=== PATIENT | female | born 1990 | race Hispanic/Latino ===

== ENCOUNTER 2017-11-22 06:50 | Emergency (ER) | payer SELFPAY ==
[2017-11-22] MEDS ORDERED: KETOROLAC 30 MG/ML INJ ONE (07:41)
--- NOTE | 2017-11-22 08:42 | RAD REPORT ---
EXAM DESCRIPTION: Javy Single View11/22/2017 7:54 am CLINICAL HISTORY: Chest pain COMPARISON: January 2017 FINDINGS: The lungs appear clear of acute infiltrate. The heart is normal size IMPRESSION: No acute abnormalities displayed
--- NOTE | 2017-11-22 08:55 | ER ---
Nurse's Notes [facility] Name: Perla Haro Age: 27 yrs Sex: Female : 1990 Arrival Date: 11/22/2017 Time: 06:53 Bed 18 Private MD: Diagnosis: Other chest pain;Chest pain, unspecified;Chest pain on breathing;Pleurisy Presentation: 11/22 06:59 Presenting complaint: Patient states: "my chest and my back hurts when I take a deep aa5 breath and it's been going on for a week". Pt c/o pain to right-mid back when taking a deep breath and with movement. Pt denies cough. Transition of care: patient was not received from another setting of care. Onset of symptoms was October 2017. Risk Assessment: Do you want to hurt yourself or someone else? Patient reports no desire to harm self or others. Initial Sepsis Screen: Does the patient meet any 2 criteria? No. Patient's initial sepsis screen is negative. Does the patient have a suspected source of infection? No. Patient's initial sepsis screen is negative. Care prior to arrival: None. 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 - Social history:: Smoking status: Patient/guardian denies using tobacco. - Ebola Screening: : No symptoms or risks identified at this time. Screenin:57 Abuse screen: Denies threats or abuse. Nutritional screening: No deficits noted. ae1 Tuberculosis screening: No symptoms or risk factors identified. Fall Risk None identified. Assessment: 07:54 General: Appears in no apparent distress. comfortable, Behavior is calm, cooperative. ae1 Pain: Complains of pain in right mid back and right low back Pain currently is 6 out of 10 on a pain scale. Pain: Aggravated by Inspiration. Neuro: Level of Consciousness is awake, alert, obeys commands, Oriented to person, place, time, situation. Cardiovascular: Heart tones S1 S2 present Patient's skin is warm and dry. Respiratory: Airway is patent Respiratory effort is even, unlabored, Respiratory pattern is regular, symmetrical, Breath sounds are clear bilaterally. GI: No signs and/or symptoms were reported involving the gastrointestinal system. : No signs and/or symptoms were reported regarding the genitourinary system. EENT: No signs and/or symptoms were reported regarding the EENT system. Derm: Skin is normal. Musculoskeletal: Range of motion: intact in all extremities, No visible bruising, swelling or deformity. 08:33 Reassessment: Patient appears in no apparent distress at this time. Patient states ae1 feeling better. Patient states symptoms have improved. Vital Signs: 07:01 BP 119 / 70; Pulse 71; Resp 18 S; Temp 97.6(TE); Pulse Ox 100% on R/A; Weight 63.5 kg aa5 (R); Height 5 ft. 4 in. (162.56 cm) (R); Pain 7/10; 08:32 BP 113 / 72; Pulse 73; Resp 18; Pulse Ox 100% on R/A; ae1 07:01 Body Mass Index 24.03 (63.50 kg, 162.56 cm) aa5 ED Course: 06:53 Patient arrived in ED. am2 07:00 Triage completed. aa5 07:01 Arm band placed on. aa5 07:02 Dami Joya, MEHREEN is Primary Nurse. ae1 07:05 Malcom Zafar MD is Attending Physician. kdr 07:34 Urine collected: clean catch specimen, cloudy, maryan colored. jb1 07:53 X-ray completed. Portable x-ray completed in exam room. Patient tolerated procedure jb2 well. 07:54 CXR XRAY In Process Unspecified. EDMS 07:57 Bed in low position. Call light in reach. Side rails up X 1. Pulse ox on. NIBP on. ae1 09:11 No provider procedures requiring assistance completed. Patient did not have IV access ae1 during this emergency room visit. Administered Medications: 07:40 Drug: TORadol 60 mg Route: IM; Site: right gluteus; ae1 08:33 Follow up: Response: Pain is decreased ae1 Outcome: 08:54 Discharge ordered by . kdr 09:11 Discharged to ae1 09:11 Condition: stable 09:13 Discharge instructions given to patient, Instructed on discharge instructions, follow ae1 up and referral plans. medication usage, Demonstrated understanding of instructions, Prescriptions given X 3. 09:14 Patient left the ED. ae1 Signatures: Dispatcher [employer] EDJean Pierre Carson jb1 Malcom Zafar MD MD kdr Buechter, Jesse jb2 Marian Isaac RN RN aa5 Dami Joya RN RN ae1 Coty Christie am2
--- NOTE | 2017-11-22 08:55 | EDPHYS ---
Physician Documentation [facility] Name: Perla Haro Age: 27 yrs Sex: Female : 1990 Arrival Date: 11/22/2017 Time: 06:53 Bed 18 Private MD: ED Physician Malcom Zafar HPI: 11/22 07:41 This 27 yrs old Female presents to ER via Ambulatory with complaints of Back kdr Pain, Chest Pain - when taking deep breath. 07:41 The patient presents with pain that is acute, with no known mechanism of injury, and kdr tenderness. The symptoms are located in the right subscapular area. Onset: The symptoms/episode began/occurred gradually, 1 week(s) ago. The pain does not radiate. Associated signs and symptoms: Pertinent positives: SOB secondary to pain, Pertinent negatives: abdominal pain, chest pain, constipation, dysuria, fever, hematuria, incontinence, nausea, numbness, tingling, urinary retention, vomiting, weakness. The problem was sustained from unknown cause. Modifying factors: The patient symptoms are alleviated by remaining still, the patient symptoms are aggravated by any movement, bending, coughing, walking. Severity of symptoms: At their worst the symptoms were mild, moderate, just prior to arrival, in the emergency department the symptoms have improved, mildly. The patient has experienced a previous episode, approximately 2 years ago, Bronchitis. The patient has not recently seen a physician. 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 - Social history:: Smoking status: Patient/guardian denies using tobacco. - Ebola Screening: : No symptoms or risks identified at this time. ROS: 07:41 Constitutional: Negative for fever, chills, and weight loss, Eyes: Negative for injury, kdr pain, redness, and discharge, ENT: Negative for injury, pain, and discharge, Neck: Negative for injury, pain, and swelling, Respiratory: Negative for shortness of breath, cough, wheezing, and pleuritic chest pain, Abdomen/GI: Negative for abdominal pain, nausea, vomiting, diarrhea, and constipation, Back: Negative for injury and pain, : Negative for injury, bleeding, discharge, and swelling, MS/Extremity: Negative for injury and deformity, Skin: Negative for injury, rash, and discoloration, Neuro: Negative for headache, weakness, numbness, tingling, and seizure activity. Psych: Negative for depression, anxiety, suicide ideation, homicidal ideation, and hallucinations, Allergy/Immunology: Negative for hives, rash, and allergies, Endocrine: Negative for neck swelling, polydipsia, polyuria, polyphagia, and marked weight changes, Hematologic/Lymphatic: Negative for swollen nodes, abnormal bleeding, and unusual bruising. 07:41 Cardiovascular: Positive for chest pain, with cough, with movement, of the right subscapular area, Negative for edema, orthopnea, palpitations, paroxysmal nocturnal dyspnea. Exam: 07:41 Constitutional: This is a well developed, well nourished patient who is awake, alert, kdr and in no acute distress. Head/Face: Normocephalic, atraumatic. Eyes: Pupils equal round and reactive to light, extra-ocular motions intact. Lids and lashes normal. Conjunctiva and sclera are non-icteric and not injected. Cornea within normal limits. Periorbital areas with no swelling, redness, or edema. Neck: Trachea midline, no thyromegaly or masses palpated, and no cervical lymphadenopathy. Supple, full range of motion without nuchal rigidity, or vertebral point tenderness. No Meningismus. Chest/axilla: Normal chest wall appearance and motion. Nontender with no deformity. No lesions are appreciated. Cardiovascular: Regular rate and rhythm with a normal S1 and S2. No gallops, murmurs, or rubs. Normal PMI, no JVD. No pulse deficits. Respiratory: Lungs have equal breath sounds bilaterally, clear to auscultation and percussion. No rales, rhonchi or wheezes noted. No increased work of breathing, no retractions or nasal flaring. Abdomen/GI: Soft, non-tender, with normal bowel sounds. No distension or tympany. No guarding or rebound. No evidence of tenderness throughout. Back: No spinal tenderness. No costovertebral tenderness. Full range of motion. Skin: Warm, dry with normal turgor. Normal color with no rashes, no lesions, and no evidence of cellulitis. MS/ Extremity: Pulses equal, no cyanosis. Neurovascular intact. Full, normal range of motion. Neuro: Awake and alert, GCS 15, oriented to person, place, time, and situation. Cranial nerves II-XII grossly intact. Motor strength 5/5 in all extremities. Sensory grossly intact. Cerebellar exam normal. Normal gait. Psych: Awake, alert, with orientation to person, place and time. Behavior, mood, and affect are within normal limits. Vital Signs: 07:01 BP 119 / 70; Pulse 71; Resp 18 S; Temp 97.6(TE); Pulse Ox 100% on R/A; Weight 63.5 kg aa5 (R); Height 5 ft. 4 in. (162.56 cm) (R); Pain 7/10; 08:32 BP 113 / 72; Pulse 73; Resp 18; Pulse Ox 100% on R/A; ae1 07:01 Body Mass Index 24.03 (63.50 kg, 162.56 cm) aa5 MDM: 08:54 Patient medically screened. kdr 11:17 Data reviewed: vital signs, nurses notes, lab test result(s), radiologic studies. kdr Counseling: I had a detailed discussion with the patient and/or guardian regarding: the historical points, exam findings, and any diagnostic results supporting the discharge/admit diagnosis, lab results, radiology results, the need for outpatient follow up. 11/22 07:54 Order name: Urine Dipstick--Ancillary (enter results) 11/22 07:54 Order name: Urine --Ancillary (enter results) bd 11/22 07:13 Order name: CXR XRAY [facility] 11/22 07:13 Order name: Urine Dipstick-Ancillary (obtain specimen); Complete Time: 07:34 kdr 11/22 07:13 Order name: Urine Test (obtain specimen); Complete Time: 07:34 kdr Administered Medications: 07:40 Drug: TORadol 60 mg Route: IM; Site: right gluteus; ae1 08:33 Follow up: Response: Pain is decreased ae1 Disposition: 11/22/17 08:54 Discharged to Home. Impression: Other chest pain, Chest pain, unspecified, Chest pain on breathing, Pleurisy. - Condition is Stable. - Discharge Instructions: Chest Wall Pain, [id number], Pleurisy, [id number]. - Prescriptions for Ibuprofen 800 mg Oral Tablet - take 1 tablet by ORAL route every 12 hours As needed take with food; 20 tablet. Tramadol 50 mg Oral Tablet - take 1 tablet by ORAL route every 8 hours as needed; 12 tablet. Medrol (Alexis) 4 mg Oral Tablets, Dose Pack - take 1 tablet by ORAL route as directed - follow package instructions; 1 packet. - Medication Reconciliation Form, Thank You Letter, Work release form form. - Follow up: Private Physician; When: 2 - 3 days; Reason: If symptoms return, Further diagnostic work-up, Recheck today's complaints, Continuance of care, Re-evaluation by your physician. - Problem is new. - Symptoms have improved. Signatures: Dispatcher [employer] EDMS Malcom Zafar MD MD [facility] Marian Isaac RN RN aa5 Dami Joya RN RN ae1 Corrections: (The following items were deleted from the chart) 09:14 08:54 11/22/2017 08:54 Discharged to Home. Impression: Other chest pain; Chest pain, ae1 unspecified; Chest pain on breathing; Pleurisy. Condition is Stable. Forms are Medication Reconciliation Form, Thank You Letter, Antibiotic Education, Prescription Opioid Use. Follow up: Private Physician; When: 2 - 3 days; Reason: If symptoms return, Further diagnostic work-up, Recheck today's complaints, Continuance of care, Re-evaluation by your physician. Problem is new. Symptoms have improved. kdr
[2017-11-22 09:13] LABS: Urine Blood NEGATIVE (NEG); Urine Glucose NEGATIVE (NEG); Urine Protein NEGATIVE (NEG); Urine Specific Gravity 1.015 (1.005-1.030)
[2017-11-22 09:17] VITALS: TEMP 97.6; O2SAT 100
[2017-11-22 09:18] VITALS: BP 113/72
== END 2017-11-22 09:14 | disposition home or self-care (01) ==
LOC: ER 06:50
DX: R07.1 Chest pain on breathing (principal); R09.1 Pleurisy
CPT/HCPCS: 71045; 81003; 81025; 96372; 99284

== ENCOUNTER 2017-12-19 11:58 | Emergency (ER) | payer SELFPAY ==
--- NOTE | 2017-12-19 14:00 | ER ---
Nurse's Notes [facility] Name: Perla Haro Age: 27 yrs Sex: Female : 1990 Arrival Date: 12/19/2017 Time: 12:01 Bed 11 Private MD: Diagnosis: Muscle spasm of back Presentation: 12/19 12:08 Presenting complaint: Patient states: Back pain for 1 month, painful cough for 1 week. aj Denies fever. Transition of care: patient was not received from another setting of care. Onset of symptoms was December 12, 2017. Risk Assessment: Do you want to hurt yourself or someone else? Patient reports no desire to harm self or others. Initial Sepsis Screen: Does the patient meet any 2 criteria? No. Patient's initial sepsis screen is negative. Does the patient have a suspected source of infection? No. Patient's initial sepsis screen is negative. Care prior to arrival: None. 12:08 Method Of Arrival: Ambulatory aj 12:08 Acuity: AMOL 4 aj Triage Assessment: 12:09 General: Appears in no apparent distress. comfortable, Behavior is calm, cooperative, aj appropriate for age. Pain: Complains of pain in right subscapular area, right mid back, right lateral posterior chest and right lateral anterior chest. Neuro: Level of Consciousness is awake, alert, obeys commands, Oriented to person, place, time, situation, Appropriate for age. Respiratory: Reports cough that is non-productive, Airway is patent Respiratory effort is even, unlabored, Respiratory pattern is regular, symmetrical. Derm: Skin is intact, is healthy with good turgor, Skin is pink, warm \T\ dry. normal. Musculoskeletal: Range of motion: intact in all extremities. 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 - Social history:: Smoking status: Patient/guardian denies using tobacco. - Ebola Screening: : Patient negative for fever greater than or equal to 101.5 degrees Fahrenheit, and additional compatible Ebola Virus Disease symptoms Patient denies exposure to infectious person Patient denies travel to an Ebola-affected area in the 21 days before illness onset No symptoms or risks identified at this time. Screenin:26 Abuse screen: Denies threats or abuse. Denies injuries from another. Nutritional iw screening: No deficits noted. Tuberculosis screening: No symptoms or risk factors identified. 14:21 Fall Risk None identified. iw Assessment: 13:25 General: Appears in no apparent distress. Behavior is calm, cooperative. Pain: iw Complains of pain in right subscapular area, right mid back and right low back. Neuro: Level of Consciousness is awake, alert, obeys commands, Oriented to person, place, time, situation, Moves all extremities. Full function. Respiratory: Respiratory effort is even, unlabored. Respiratory: Reports shortness of breath cough that is non-productive. Derm: Skin is pink, warm \T\ dry. normal. Musculoskeletal: Range of motion: intact in all extremities. Vital Signs: 12:09 BP 95 / 76; Pulse 90; Resp 20; Temp 98.1; Pulse Ox 99% on R/A; Weight 63.5 kg; Height 5 aj ft. 4 in. (162.56 cm); 12:09 Body Mass Index 24.03 (63.50 kg, 162.56 cm) aj ED Course: 12:01 Patient arrived in ED. mr 12:09 Triage completed. aj 12:09 Arm band placed on left wrist. Patient placed in waiting room. aj 13:05 Jean-Paul Adkins PA is PHCP. jr8 13:05 Danial Williamson MD is Attending Physician. jr8 13:25 Darling Brooks, RN is Primary Nurse. iw 13:42 X-ray completed. Patient tolerated procedure well. Patient moved back from radiology. jb2 13:45 Chest Pa And Lat (2 Views) XRAY In Process Unspecified. EDMS 14:20 No provider procedures requiring assistance completed. Patient did not have IV access iw during this emergency room visit. 14:21 Patient has correct armband on for positive identification. iw Administered Medications: No medications were administered Outcome: 13:59 Discharge ordered by . jr8 14:20 Discharged to home ambulatory. iw 14:20 Condition: good 14:20 Discharge instructions given to patient, Instructed on discharge instructions, follow up and referral plans. medication usage, Demonstrated understanding of instructions, follow-up care, medications, Prescriptions given X 1. 14:21 Patient left the ED. iw Signatures: Dispatcher [employer] Coty Gaytan RN RN aj Rivera, Maria mr Buechter, Jesse jb2 Darling Brooks RN RN iw Roszak, Josh, PA PA jr8
--- NOTE | 2017-12-19 14:00 | EDPHYS ---
Physician Documentation [facility] Name: Perla Haro Age: 27 yrs Sex: Female : 1990 Arrival Date: 12/19/2017 Time: 12:01 Bed 11 Private MD: ED Physician Danial Williamson HPI: 12/19 16:24 This 27 yrs old Female presents to ER via Ambulatory with complaints of Back jr8 Pain, Chest Pain. 16:24 Onset: The symptoms/episode began/occurred gradually, 1 month(s) ago. The pain does not jr8 radiate. Associated signs and symptoms: The patient has no apparent associated signs or symptoms. The problem was sustained from unknown cause. Severity of symptoms: At their worst the symptoms were mild, in the emergency department the symptoms are unchanged. The patient has not experienced similar symptoms in the past. The patient has not recently seen a physician. Patient stated that she has had back pain for about 1 month. No has had cough for a week. Was given antibiotics and feels slightly better but is still coughing and making back pain worse again . 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 - Social history:: Smoking status: Patient/guardian denies using tobacco. - Ebola Screening: : Patient negative for fever greater than or equal to 101.5 degrees Fahrenheit, and additional compatible Ebola Virus Disease symptoms Patient denies exposure to infectious person Patient denies travel to an Ebola-affected area in the 21 days before illness onset No symptoms or risks identified at this time. ROS: 20:18 Eyes: Negative for injury, pain, redness, and discharge, ENT: Negative for injury, jr8 pain, and discharge, Neck: Negative for injury, pain, and swelling, Cardiovascular: Negative for chest pain, palpitations, and edema, Abdomen/GI: Negative for abdominal pain, nausea, vomiting, diarrhea, and constipation, MS/Extremity: Negative for injury and deformity, Skin: Negative for injury, rash, and discoloration, Neuro: Negative for headache, weakness, numbness, tingling, and seizure. 20:18 Respiratory: Positive for cough, Negative for shortness of breath, sputum production, wheezing. 20:18 Back: Positive for pain at rest, pain with movement, of the right scapular area and right subscapular area. Exam: 20:18 Head/Face: Normocephalic, atraumatic. Eyes: Pupils equal round and reactive to light, jr8 extra-ocular motions intact. Lids and lashes normal. Conjunctiva and sclera are non-icteric and not injected. Cornea within normal limits. Periorbital areas with no swelling, redness, or edema. ENT: Nares patent. No nasal discharge, no septal abnormalities noted. Tympanic membranes are normal and external auditory canals are clear. Oropharynx with no redness, swelling, or masses, exudates, or evidence of obstruction, uvula midline. Mucous membranes moist. Neck: Trachea midline, no thyromegaly or masses palpated, and no cervical lymphadenopathy. Supple, full range of motion without nuchal rigidity, or vertebral point tenderness. No Meningismus. Cardiovascular: Regular rate and rhythm with a normal S1 and S2. No gallops, murmurs, or rubs. Normal PMI, no JVD. No pulse deficits. Respiratory: Lungs have equal breath sounds bilaterally, clear to auscultation and percussion. No rales, rhonchi or wheezes noted. No increased work of breathing, no retractions or nasal flaring. Abdomen/GI: Soft, non-tender, with normal bowel sounds. No distension or tympany. No guarding or rebound. No evidence of tenderness throughout. Skin: Warm, dry with normal turgor. Normal color with no rashes, no lesions, and no evidence of cellulitis. MS/ Extremity: Pulses equal, no cyanosis. Neurovascular intact. Full, normal range of motion. Neuro: Awake and alert, GCS 15, oriented to person, place, time, and situation. Cranial nerves II-XII grossly intact. Motor strength 5/5 in all extremities. Sensory grossly intact. Cerebellar exam normal. Normal gait. 20:18 Back: pain, that is mild, of the right scapular area and right subscapular area, ROM is painful, normal spinal alignment noted, CVA tenderness, is absent, muscle spasm, is appreciated in the right scapular area and right subscapular area. Vital Signs: 12:09 BP 95 / 76; Pulse 90; Resp 20; Temp 98.1; Pulse Ox 99% on R/A; Weight 63.5 kg; Height 5 aj ft. 4 in. (162.56 cm); 12:09 Body Mass Index 24.03 (63.50 kg, 162.56 cm) aj MDM: 13:05 Patient medically screened. jr8 13:58 Data reviewed: vital signs, nurses notes, radiologic studies, plain films, and as a jr8 result, I will discharge patient. Data interpreted: Pulse oximetry: on room air is 99 %. Interpretation: normal. Counseling: I had a detailed discussion with the patient and/or guardian regarding: the historical points, exam findings, and any diagnostic results supporting the discharge/admit diagnosis, the need for outpatient follow up, a family practitioner, to return to the emergency department if symptoms worsen or persist or if there are any questions or concerns that arise at home. 12/19 12:11 Order name: Chest Pa And Lat (2 Views) XRAY; Complete Time: 14:09 Administered Medications: No medications were administered Disposition: 12/20 06:38 Co-signature as Attending Physician, Danial Williamson MD I agree with the assessment and jacquelin plan of care. Disposition: 12/19/17 13:59 Discharged to Home. Impression: Muscle spasm of back. - Condition is Stable. - Discharge Instructions: Back Exercises, [id number], Heat Therapy. - Prescriptions for Cyclobenzaprine 10 mg Oral Tablet - take 1 tablet by ORAL route every 8 hours As needed; 30 tablet. - Work release form, Medication Reconciliation Form, Thank You Letter, Antibiotic Education, Prescription Opioid Use form. - Follow up: Private Physician; When: 1 week; Reason: Recheck today's complaints, Continuance of care, Re-evaluation by your physician. - Problem is new. - Symptoms are unchanged. Signatures: Dispatcher [employer] EDCoty Ramirez RN RN aj Anderson, Corey, MD MD cha Williams, Irene, RN RN iw Roszak, Josh, PA PA jr8 Corrections: (The following items were deleted from the chart) 12/19 14:21 13:59 12/19/2017 13:59 Discharged to Home. Impression: Muscle spasm of back. Condition iw is Stable. Forms are Medication Reconciliation Form, Thank You Letter, Antibiotic Education, Prescription Opioid Use. Follow up: Private Physician; When: 1 week; Reason: Recheck today's complaints, Continuance of care, Re-evaluation by your physician. Problem is new. Symptoms are unchanged. jr8 20:19 16:24 Patient stated that she has had back pain for about 1 month. . jr8 jr8
--- NOTE | 2017-12-19 14:07 | RAD REPORT ---
EXAM DESCRIPTION: RAD - Chest Pa And Lat (2 Views) - 12/19/2017 1:48 pm CLINICAL HISTORY: Painful cough, back pain COMPARISON: October 2017 TECHNIQUE: PA and lateral views of the chest were obtained. FINDINGS: The lungs are clear of acute infiltrate, mass or failure finding. Lung markings are mildly prominent but not clearly different. Heart size is normal and central vasculature is within normal limits. No pleural effusion or pneumothorax seen. No acute bony finding noted. Very minimal scolio tic curvature in the upper and mid thoracic spine. No aortic abnormality. IMPRESSION: No acute cardiopulmonary process. Chest is not significantly different from comparison.
[2017-12-19 14:27] VITALS: BP 95/76; TEMP 98.1; O2SAT 99
== END 2017-12-19 14:21 | disposition home or self-care (01) ==
LOC: ER 11:58
DX: M62.830 Muscle spasm of back (principal)
CPT/HCPCS: 71046; 99283

== ENCOUNTER 2018-06-10 12:38 | Emergency (ER) | payer SELFPAY ==
--- OUTSIDE RECORDS SUMMARY | 2018-06-10 12:41 | XMS REPORT ---
:1990 Author Organization [facility] Address [address] [place] [address] Care Team Providers Name Role Phone Unavailable Unavailable Unavailable Problems This patient has no known problems. Allergies, Adverse Reactions, Alerts This patient has no known allergies or adverse reactions. Medications This patient has no known medications.
[2018-06-10 13:24] LABS: Urine Bacteria 20-50 /HPF (<20); Urine Culture Reflex Order NOT NEEDED
[2018-06-10 13:28] LABS: Urine Blood TRACE (NEG); Urine Glucose TRACE (NEG); Urine Protein 1+ (NEG)
--- NOTE | 2018-06-10 13:57 | ER ---
Nurse's Notes [facility] Name: Perla Haro Age: 27 yrs Sex: Female : 1990 Arrival Date: 06/10/2018 Time: 12:42 Bed 30 Private MD: Diagnosis: Acute tubulo-interstitial nephritis Presentation: 06/10 12:48 Presenting complaint: Patient states: Burning with urination, Suprapubic pain, and L ss flank aching that began 1 week ago. Transition of care: patient was not received from another setting of care. Onset of symptoms was June 03, 2018. Risk Assessment: Do you want to hurt yourself or someone else? Patient reports no desire to harm self or others. Initial Sepsis Screen: Does the patient meet any 2 criteria? No. Patient's initial sepsis screen is negative. Does the patient have a suspected source of infection? Yes: Dysuria/Frequency/Urgency/UTI. Care prior to arrival: None. 12:48 Method Of Arrival: Ambulatory ss 12:48 Acuity: AMOL 3 ss Historical: - Allergies: 12:50 No Known Allergies; ss - Home Meds: 12:50 None [Active]; ss - PMHx: 12:50 None; ss - PSHx: 12:50 Tubal ligation; ss - Immunization history:: Adult Immunizations up to date. - Social history:: Smoking status: Patient/guardian denies using tobacco. - Ebola Screening: : Patient denies exposure to infectious person Patient denies travel to an Ebola-affected area in the 21 days before illness onset. Screenin:27 Abuse screen: Denies threats or abuse. Nutritional screening: No deficits noted. la1 Tuberculosis screening: No symptoms or risk factors identified. Fall Risk None identified. Assessment: 13:26 General: Appears in no apparent distress. Behavior is calm, cooperative. Pain: la1 Complains of pain in back Pain currently is 4 out of 10 on a pain scale. Neuro: Level of Consciousness is awake, alert, obeys commands, Oriented to person, place, time, situation. Cardiovascular: Capillary refill < 3 seconds Patient's skin is warm and dry. Respiratory: Airway is patent Trachea midline Respiratory effort is even, unlabored. GI: No signs and/or symptoms were reported involving the gastrointestinal system. : Reports burning with urination. 14:21 Reassessment: Patient appears in no apparent distress at this time. No changes from la1 previously documented assessment. Patient and/or family updated on plan of care and expected duration. Pain level reassessed. 14:25 Reassessment: Pt has been discharged, jacket found in room. Attempted to call number on file, but was not a working number. Vital Signs: 12:48 BP 119 / 71; Pulse 80; Resp 15; Temp 98.3(TE); Pulse Ox 100% on R/A; Weight 61.23 kg; ss Height 5 ft. 4 in. (162.56 cm); Pain 7/10; 12:48 Body Mass Index 23.17 (61.23 kg, 162.56 cm) ED Course: 12:42 Patient arrived in ED. mr 12:49 Triage completed. ss 12:50 Arm band placed on right wrist. 12:52 Melvin Henry RN is Primary Nurse. la1 12:53 Gumaro Anglin MD is Attending Physician. 13:27 Bed in low position. Call light in reach. la1 14:20 No provider procedures requiring assistance completed. Patient did not have IV access la1 during this emergency room visit. Administered Medications: 14:20 Drug: KeFLEX 1000 mg Route: PO; la1 14:20 Follow up: Response: Medication administered at discharge. la1 Outcome: 13:57 Discharge ordered by . gs 14:20 Discharged to home ambulatory. la1 14:20 Condition: stable 14:20 Discharge instructions given to patient, Instructed on discharge instructions, follow up and referral plans. medication usage, Demonstrated understanding of instructions, follow-up care, medications, Prescriptions given X 1. 14:21 Patient left the ED. la1 Addendum: 06/13/2018 07:13 Addendum: Culture Results: Positive urine culture. No further action required. Bacteria h b sensitive to prescribed antibiotic. Signatures: Chema January piedra Nanette Livingston RN RN Melvin Henry RN RN la Syl Mariano RN RN Gumaro Anglin MD MD
--- NOTE | 2018-06-10 13:57 | EDPHYS ---
Physician Documentation [facility] Name: Perla Haro Age: 27 yrs Sex: Female : 1990 Arrival Date: 06/10/2018 Time: 12:42 Bed 30 Private MD: ED Physician Gumaro Anglin HPI: 06/10 14:54 This 27 yrs old Female presents to ER via Ambulatory with complaints of gs Urinary Problem, Back Pain. 14:54 The patient presents with flank pain, urinary symptoms, dysuria, frequency. Onset: The gs symptoms/episode began/occurred acutely, 2 day(s) ago. Modifying factors: The symptoms are alleviated by nothing, the symptoms are aggravated by nothing. Associated signs and symptoms: Pertinent negatives: fever, vomiting. Severity of symptoms: At their worst the symptoms were moderate, in the emergency department the symptoms are unchanged. The patient has experienced similar episodes in the past, a few times. Historical: - Allergies: 12:50 No Known Allergies; ss - Home Meds: 12:50 None [Active]; ss - PMHx: 12:50 None; ss - PSHx: 12:50 Tubal ligation; ss - Immunization history:: Adult Immunizations up to date. - Social history:: Smoking status: Patient/guardian denies using tobacco. - Ebola Screening: : Patient denies exposure to infectious person Patient denies travel to an Ebola-affected area in the 21 days before illness onset. ROS: 14:54 All other systems are negative. gs Exam: 14:54 Head/Face: Normocephalic, atraumatic. Eyes: Pupils equal round and reactive to light, gs extra-ocular motions intact. Lids and lashes normal. Conjunctiva and sclera are non-icteric and not injected. Cornea within normal limits. Periorbital areas with no swelling, redness, or edema. ENT: Nares patent. No nasal discharge, no septal abnormalities noted. Tympanic membranes are normal and external auditory canals are clear. Oropharynx with no redness, swelling, or masses, exudates, or evidence of obstruction, uvula midline. Mucous membranes moist. Neck: Trachea midline, no thyromegaly or masses palpated, and no cervical lymphadenopathy. Supple, full range of motion without nuchal rigidity, or vertebral point tenderness. No Meningismus. Chest/axilla: Normal chest wall appearance and motion. Nontender with no deformity. No lesions are appreciated. Cardiovascular: Regular rate and rhythm with a normal S1 and S2. No gallops, murmurs, or rubs. Normal PMI, no JVD. No pulse deficits. Respiratory: Lungs have equal breath sounds bilaterally, clear to auscultation and percussion. No rales, rhonchi or wheezes noted. No increased work of breathing, no retractions or nasal flaring. Abdomen/GI: Soft, non-tender, with normal bowel sounds. No distension or tympany. No guarding or rebound. No evidence of tenderness throughout. Skin: Warm, dry with normal turgor. Normal color with no rashes, no lesions, and no evidence of cellulitis. MS/ Extremity: Pulses equal, no cyanosis. Neurovascular intact. Full, normal range of motion. Neuro: Awake and alert, GCS 15, oriented to person, place, time, and situation. Cranial nerves II-XII grossly intact. Motor strength 5/5 in all extremities. Sensory grossly intact. Cerebellar exam normal. Normal gait. 14:54 Constitutional: The patient appears alert, awake. 14:54 Back: CVA tenderness, that is moderate, is noted on the left. Vital Signs: 12:48 BP 119 / 71; Pulse 80; Resp 15; Temp 98.3(TE); Pulse Ox 100% on R/A; Weight 61.23 kg; ss Height 5 ft. 4 in. (162.56 cm); Pain 7/10; 12:48 Body Mass Index 23.17 (61.23 kg, 162.56 cm) MDM: 13:01 Patient medically screened. 14:54 Differential diagnosis: urinary tract infection. Data reviewed: vital signs, nurses gs notes. Response to treatment: the patient's symptoms have markedly improved after treatment, and as a result, I will discharge patient. 06/10 12:57 Order name: Urine Microscopic Only; Complete Time: 13:51 06/10 12:57 Order name: Urine Culture 06/10 13:00 Order name: Urine Test (obtain specimen); Complete Time: 13:03 gs 06/10 13:18 Order name: Urine Dipstick--Ancillary (enter results); Complete Time: 13:51 bd 06/10 13:18 Order name: Urine --Ancillary (enter results); Complete Time: 13:51 06/10 13:00 Order name: Urine Dipstick-Ancillary (obtain specimen); Complete Time: 13:03 Administered Medications: 14:20 Drug: KeFLEX 1000 mg Route: PO; la1 14:20 Follow up: Response: Medication administered at discharge. la1 Disposition: 06/10/18 13:57 Discharged to Home. Impression: Acute tubulo-interstitial nephritis. - Condition is Stable. - Discharge Instructions: Pyelonephritis, Adult. - Prescriptions for Keflex 500 mg Oral Capsule - take 2 capsule by ORAL route every 12 hours for 10 days; 38 capsule. - Work release form, Medication Reconciliation Form, Thank You Letter, Antibiotic Education, Prescription Opioid Use form. - Follow up: Private Physician; When: 2 - 3 days; Reason: Re-evaluation by your physician. Signatures: Dispatcher [employer] EDNanette Spring RN RN ss Melvin Henry RN RN la1 Gumaro Anglin MD MD gs Corrections: (The following items were deleted from the chart) 14:21 13:57 06/10/2018 13:57 Discharged to Home. Impression: Acute tubulo-interstitial la1 nephritis. Condition is Stable. Forms are Medication Reconciliation Form, Thank You Letter, Antibiotic Education, Prescription Opioid Use. Follow up: Private Physician; When: 2 - 3 days; Reason: Re-evaluation by your physician.
[2018-06-10] MEDS ORDERED: CEPHALEXIN 250 MG CAP ONE (14:10)
[2018-06-10 14:32] VITALS: BP 119/71; TEMP 98.3; O2SAT 100
== END 2018-06-10 14:21 | disposition home or self-care (01) ==
LOC: ER 12:38
DX: N10 Acute pyelonephritis (principal)
CPT/HCPCS: 81003; 81015; 81025; 87077; 87086; 87088; 87186; 99283